=== PATIENT | male | born 1960 | race Caucasian/White ===

== ENCOUNTER 2024-02-20 07:52 | Day surgery (SDC) | payer OTHER ==
[~2024-02-20] VITALS: Ht 170.2 cm; Wt 79.7 kg
[~2024-02-20 07:52] MED LIST: FLAX SEED OIL1000 MG PO; HCTZ PO; LISINOPRIL40 MG PO; VERAPAMIL HCL240 M1 PO
[2024-02-20] MEDS ORDERED: Ondansetron 4 MG/2 ML VIAL IV PRN (08:00)
[2024-02-20 08:37] VITALS: BP 140/85; PULSE 61; TEMP 97.2
[2024-02-20] MEDS ORDERED: CLARITIN 1010 MG/TAB PO (08:53)
[2024-02-20] MEDS ORDERED: HCTZ 25MG TAB25 MG PO (08:53)
[2024-02-20] MEDS ORDERED: CELEBREX 200MG200 MG PO (08:53)
[2024-02-20] MEDS ORDERED: PRINIVIL40 MG PO (08:54)
[2024-02-20] MEDS ORDERED: WIXELA 250-501 EACH IH (08:54)
[2024-02-20] MEDS ORDERED: ISOPTIN SR120 MG PO (08:54)
[2024-02-20] MEDS ORDERED: COUMADIN 5MG5 MG/TAB PO (08:57)
[2024-02-20] MEDS ORDERED: LR 1,000 ML IV ONE (09:00)
--- NOTE | 2024-02-20 10:22 | NUR ---
0940: PT AMBULATED BACK TO ROOM 3. 20G IV STARTED IN RIGHT HAND. LR INFUSING WITHOUT DIFFICULTIES. RESTING IN RECLINER. CALL LIGHT IN REACH. , ALESSIO, AT BEDSIDE.
[2024-02-20 12:32] VITALS: TEMP 98
[2024-02-20 12:40] VITALS: BP 120/78; PULSE 64
[2024-02-20 12:55] VITALS: BP 125/71; PULSE 61
[2024-02-20 13:10] VITALS: BP 120/73; PULSE 62
--- NOTE | 2024-02-20 14:25 | NUR ---
1240 PATIENT RETURNS TO [facility] [place] [facility] VIA CART. PT AWAKE AND ALERT. RESPIRATIONS UNLABORED. AMBULATED TO RECLINER CHAIR WITH 2:1 SBA. PT DENIES NAUSEA OR ABDOMINAL PAIN. HOOKED UP TO MONITOR AND VS OBTAINED. CALL LIGHT AT SIDE AND PRESENT. 1245 PATIENT TOLERATING COFFEE AND MUFFIN WITHOUT NAUSEA OR DIFFICULTY SWALLOWING (EGD ONLY). 1300 IN ROOM SPEAKING WITH PATIENT. 1315 D/C INSTRUCTIONS REVIEWED WITH PATIENT. PT VERBALIZED UNDERSTANDING AND A COPY OF INSTRUCTIONS PROVIDED IN D/C FOLDER. 1330 PATIENT DRESSES SELF. 1345 PATIENT DISCHARGED FROM UNIT VIA W/C TO A PERSONAL VEHICLE. PT LEFT HOSPITAL IN STABLE CONDITION.
== END 2024-02-20 13:45 | disposition home or self-care (01) ==
LOC: SDCO 07:52
DX: Z12.11 Encounter for screening for malignant neoplasm of colon (principal); D12.4 Benign neoplasm of descending colon; Z86.010 Personal history of colon polyps; D12.3 Benign neoplasm of transverse colon; D17.5 Benign lipomatous neoplasm of intra-abdominal organs; K64.0 First degree hemorrhoids
CPT/HCPCS: J2704; J7120